=== PATIENT | female | born 1970 | race Caucasian/White ===

== ENCOUNTER 2021-01-27 18:41 | Day surgery (SDCO) | payer OTHER ==
[~2021-01-27] VITALS: Ht 170.2 cm; Wt 70.4 kg
[~2021-01-27 18:41] MED LIST: AMOXICILLIN500 MG PO; OFLOXACIN5 M1 AS; OFLOXACIN5 M1 EARLF; PROTONIX 40MG T40 MG PO
[2021-01-28] MEDS ORDERED: MILI 0.25-0.031 EACH PO (00:14)
[2021-01-28] MEDS ORDERED: LAMICTAL100 M1 PO (00:16)
--- NOTE | 2021-01-28 13:20 | NUR ---
PT IS OBS. PLEASE CONSIDER D/C OR ADMIT.
[2021-01-29 03:50] LABS: BASOPHIL 0.8 % (0-2); EOSINOPHIL 3.6 % (0-5); HCT 41.5 % (37.0-47.0); HGB 14.3 g/dl (12.5-16.0); LYMPHOCYTE 26.4 % (15-48); MCH 33.1 pg (25.0-31.0); MCHC 34.5 g/dL (32.0-36.0); MCV 96.1 fL (78.0-100.0); MPV 9.4 fL (6.0-9.5); NEUTROPHIL 60.9 % (41-80); NRBC 0; PLT 236 K/uL (150-400); RBC 4.32 M/uL (4.20-5.40); RDW 12.3 % (11.5-14.0); WBC 8.8 K/uL (4.0-10.5)
[2021-01-29 04:27] LABS: CREATININE 0.49 mg/dL (0.51-0.95); POTASSIUM 3.9 mmol/L (3.5-5.1)
[2021-01-29 04:28] LABS: ALBUMIN 2.9 g/dL (3.4-5.0); BILIRUBIN - TOTAL 0.3 mg/dL (0.2-1.0); GLOBULIN (CALCULATION) 4.5 g/dL; TOTAL PROTEIN 7.4 g/dL (6.4-8.2)
[2021-01-29] MEDS ORDERED: ELIQUIS5 MG PO (12:07)
[2021-01-29] MEDS ORDERED: ULTRAM50 MG PO (12:10)
== END 2021-01-29 14:15 | disposition home or self-care (01) ==
LOC: FER 18:41 → FMS 22:10
PROVIDERS: Nurse Practitioner; ADMIT Internal Medicine
DX: I82.411 Acute embolism and thrombosis of right femoral vein (principal); I82.431 Acute embolism and thrombosis of right popliteal vein; I82.441 Acute embolism and thrombosis of right tibial vein; H66.92 Otitis media, unspecified, left ear; Z79.899 Other long term (current) drug therapy; Z88.5 Allergy status to narcotic agent; Z20.822 Contact with and (suspected) exposure to COVID-19
CPT/HCPCS: 36415; 80053; 84703; 85025; 93971; G0378; J1650; U0002